=== PATIENT | male | born 1985 | race African-American/Black ===

== ENCOUNTER 2016-07-01 06:34 | Emergency (ER) | payer OTHER ==
[~2016-07-01] VITALS: Ht 182.9 cm; Wt 89.8 kg
[~2016-07-01 06:34] MED LIST: AUGMENTIN 875875 MG PO; KEFLEX500 MG PO; NORCO 5-325 TA1 EACH PO; XANAX 0.25 MG0.25 MG
[2016-07-01] MEDS ORDERED: PRINIVIL5 MG PO (06:52)
[2016-07-01] MEDS ORDERED: MOBIC15 MG PO (07:07)
[2016-07-01 07:46] VITALS: BP 134/81
== END 2016-07-01 08:01 | disposition home or self-care (01) ==
LOC: ER 06:34
DX: M72.2 Plantar fascial fibromatosis (principal); Z90.79 Acquired absence of other genital organ(s); Z88.6 Allergy status to analgesic agent